=== PATIENT | female | born 1965 | race Caucasian/White ===

== ENCOUNTER 2025-08-03 13:05 | Outpatient (AMB) | payer OTHER, SELFPAY ==
--- NOTE | 2025-08-03 13:06 | MHC.PC.OV ---
Vital Signs 08/03/25 13:09 Height 5 ft 5 in Weight 127 lb BMI 21.1 BP 120/84 Blood Pressure Location Rt brachial Position Sitting Respiration 16 Pulse 64 Pulse Source Pulse Oximeter Temp 96.9 F Temp Source Temporal Artery Scan Pulse Oximetry (%) 96 Oxygen Delivery Method Room Air Intake Visit Reasons: physical - see comments See Supervisor Required: No Accompanied by: Self / Same As Patient Allergies acetaminophen (From Percocet) Adverse Reaction (Intermediate, Verified 08/03/25 13:56) Vomiting oxycodone (From Percocet) Adverse Reaction (Intermediate, Verified 08/03/25 13:56) Vomiting Medication List - Last Reconciled 08/03/25 by Nasra Villeda MD cyanocobalamin (vitamin B-12) mcg IM QMONTH linaclotide (Linzess) 290 mcg PO DAILY lorazepam mg PO BEDTIME PRN prucalopride (Motegrity) 2 mg PO DAILY syringe with needle, safety (BD Integra Syringe) As directed Tobacco use date assessed: 08/03/25 Dental Screening Dental Screen Date: 08/03/25 Did you have a dental visit in the last 12 months?: Yes Did you have a dental problem in the last 6 months where you did not have access to dental care?: No Was dental information given to patient?: Patient has dentist HPI HPI Comments History of Present Illness Details The patient is a 59 year old female presenting to [facility] and for physical. Fatigue: The patient reports feeling lethargic and drained for the past month. She has a history of vitamin B12 deficiency and has been taking monthly B12 shots for a long time. . Chronic Constipation and Irritable Bowel Syndrome: The patient has a long-standing history of GI issues, including a diagnosis of Irritable Bowel Syndrome (IBS) and significant constipation. The constipation is severe, with bowel movements occurring only every other day despite taking both Linzess and Motegrity daily. She notes that the generic version of Motegrity was ineffective compared to the brand name. She reports difficulty seeing her soccer referee. She has to go to [facility] because of her insurance. Her water intake could be better. History of SIBO and Food Sensitivities: The patient was diagnosed with Small Intestinal Bacterial Overgrowth (SIBO) in January after experiencing severe illness, which was treated with a 14-day course of an antibiotic. She believes the SIBO may have resulted from her severe constipation. Since the SIBO diagnosis, she has experienced significant food sensitivities and has been on a gluten-free diet since January due to lab results showing a high intolerance to gluten, which helps with bloating. Despite avoiding gluten, she still experiences reactions, even to gluten-free pasta. Her diet consists mainly of unprocessed foods like eggs, tuna, meat, and vegetables, following a high-protein diet by default. Paresthesia of Right Foot: For about a year, the patient has experienced progressive numbness in her right foot, which started in her 5th toe and has since spread to the adjacent toe. She feels it may now be traveling to the third toe. The symptoms began after a trip involving extensive walking, despite wearing good sneakers, and occurs daily now regardless of activity level. She denies any associated back pain. The numbness is significant enough that she believes she would not feel a screening specialist the affected area. Menopausal Syndrome: The patient believes she is at the end of menopause, reporting that her sleep has improved from what it was previously. She has not tried gabapentin as was previously discussed. She experiences significant vaginal dryness and inquired about topical estradiol suppositories but has not yet seen an PLASTIC PRODUCTION MACHINE SETTER to have it prescribed. Anxiety: The patient continues to see a behavioral therapist for anxiety, now on a quarterly basis for check-ins. She has tried about ten different antidepressants without success and has returned to using lorazepam, though her initial goal was to get off of it. She currently takes two 0.5 mg tablets (1 mg total) at night, which helps with sleep. She has the option to take half a tablet during the day for acute stressful events but rarely does so. She expresses concern about the cognitive side effects of long-term use. Social History: - She follows a gluten-free diet and has been trying to maintain a high-protein diet, consuming eggs, cottage cheese, tuna, meat, and vegetables. - She has a history of consuming dairy products like Pashto yogurt and cheese. - Caffeine: Drinks two, sometimes three, cups of coffee a day. - Water Intake: Reports she could do better than her current intake and was advised to increase to 64 ounces daily. 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 Generalized anxiety disorder Surgical History (Updated 08/03/25 @ 12:43 by Nasra Villeda MD) History of back surgery History of colonoscopy (~08/15/22) Family History (Updated 08/03/25 @ 12:43 by Nasra Villeda MD) Sister Throat cancer Other Congestive heart failure Coronary artery disease Lung cancer Primary hypertension Social History Housing: House Patient Tobacco Use Status: Never used Tobacco e-Cigarette/Vaping Use: Never Used service: No Current occupational status: employed Current occupation: [employer] Questionnaire PHQ-9 Over the last 2 weeks, how often have you been bothered by any of the following problems? 1. Little interest or pleasure in doing things: not at all 2. Feeling down, depressed, or hopeless: not at all 3. Trouble falling or staying asleep, or sleeping too much: not at all 4. Feeling tired or having little energy: several days 5. Poor appetite or overeating: not at all 6. Feeling bad about yourself - or that you are a failure or have let yourself or your family down: not at all 7. Trouble concentrating on things, such as reading the newspaper or watching television: not at all 8. Moving or speaking so slowly that other people could have noticed. Or the opposite - being so fidgety or restless that you have been moving around a lot more than usual: not at all 9. Thoughts that you would be better off or of hurting yourself in some way: not at all Total score: 1 Depression Screening Interpretation: Negative Depression Screening Done: Yes [id number] - PHQ-9 Billing: Yes Source: Developed by Drs. Jonathan Stanton, Lolly Shah, Roger Hernandez and colleagues, with an educational bola from [employer]. Thrive Questionnaire Date Thrive assessed: 08/03/25 I am a: Patient What is your living situation today?: I have a steady place to live Within the past 12 months, did the food you bought not last and you didn't have the money to get more?: Never true Within the past 12 months, did you worry whether your food would run out before you got money to buy more?: Never true Do you have trouble paying for medicines?: No Do you have trouble getting transportation to medical appointments?: No Do you have trouble paying your heating and electricity bill?: No Do you have trouble taking care of your child, family member or friend?: No Do you have trouble with day-to-day activities such as bathing, preparing meals, shopping, managing finances, etc.?: No Are you currently unemployed and looking for a job?: No Are you interested in more education?: No THRIVE Score: 0 AUDIT C Alcohol Use Questionnaire (AUDIT-C) 1. How often do you have a drink containing alcohol?: Monthly or less 2. How many drinks containing alcohol do you have on a typical day when you are drinking?: 1 or 2 3. How often do you have six or more drinks on one occasion?: Never Total Score: 1 DESMOND-7 AMB Questionnaire DESMOND-7 Date DESMOND - 7 assessed: 08/03/25 Feeling nervous, anxious, or on edge: 1 = Several days Not being able to stop or control worryin = Not at all Worrying too much about different things: 0 = Not at all Trouble relaxin = Not at all Being so restless that it is hard to sit still: 0 = Not at all Becoming easily annoyed or irritable: 0 = Not at all Feeling afraid as if something awful might happen: 0 = Not at all Total DESMOND-7 score (0-4 normal; 5-9 mild; 10-14 moderate; 15-21 severe): 1 Source: Developed by Drs. Jonathan Stanton, Lolly Shah, Roger Hernandez and colleagues, with an educational bola from [employer]. Review of Systems Narrative Review of Systems - Constitutional: Reports fatigue and feeling drained for one month. - Gastrointestinal: per hpi - Genitourinary: Reports vaginal dryness. - Musculoskeletal: No back pain reported with foot symptoms. - Neurological: Reports numbness in her right foot, starting in the fifth toe and progressing to the fourth and possibly third toe over the past year. Denies back pain. - Psychiatric: per hpi - Integumentary/Nails: Reports her nails were not growing well, prompting her to start a multivitamin. - Endocrine: Reports being at the end of menopause; her sleep has improved. Physical exam (Primary Care) Vital Signs: Last Vital Signs Temp 96.9 F 08/03/25 13:09 Pulse 64 08/03/25 13:09 Resp 16 08/03/25 13:09 BP 120/84 08/03/25 13:09 Pulse Ox 96 08/03/25 13:09 Oxygen Delivery Method Room Air 08/03/25 13:09 BMI result Body Mass Index 21.1 Tobacco/Smoking Status: Tobacco use Status Tobacco use date assessed 08/03/25 08/03/25 13:14 Patient Tobacco Use Status Never used Tobacco 08/03/25 13:14 e-Cigarette/Vaping Use Never Used 08/03/25 13:14 PHQ-9: PHQ-9 Score PHQ-9: Total score 1 08/03/25 15:41 Depression Screening Interpretation: Negative Thrive Assessment: Date of Thrive Assessment Date Thrive assessed 08/03/25 08/03/25 14:08 Narrative Physical Exam - Eyes: No abnormalities noted on external exam. EOMI, PERRL - Ears: Both ear canals are clear. - Mouth/Throat: Oropharynx is clear. - Cardiovascular: Normal heart sounds with a very soft, murmur. - Pulmonary: Lungs are clear to auscultation bilaterally. - Abdomen: Soft, non-distended, and non-tender to palpation. Bowel sounds are present and normal. - Extremities: 2+ dp pulses bilateral lower extremities - Neurological: Sensory exam of the right foot with monofilament demonstrated decreased sensation to light touch in the fourth toe and absent sensation in the fifth toe, particularly on the lateral aspect. Coding Level of Care Code Est Pt Prev Care 40-64y(84173) Complex visit Add On G2211 Diagnoses Routine medical exam Z00.00 Irritable bowel syndrome with constipation K58.1 Irritable bowel syndrome type: with constipation Anemia due to vitamin B12 deficiency, unspecified B12 deficiency type D51.9 Vitamin B12 deficiency anemia type: unspecified B12 deficiency Additional Codes PHQ-9 - 06633 - PHQ-9 Billing: Yes ([id number]) Assessment & Plan Assessment & Plan (1) Routine medical exam: Code(s): Z00.00 - Encounter for general adult medical examination without abnormal findings Category: Medical (2) IBS (irritable bowel syndrome): Code(s): K58.9 - Irritable bowel syndrome, unspecified Category: Medical Qualifiers: Irritable bowel syndrome type: with constipation Qualified Code(s): K58.1 - Irritable bowel syndrome with constipation (3) B12 deficiency anemia: Code(s): D51.9 - Vitamin B12 deficiency anemia, unspecified Category: Medical Qualifiers: Vitamin B12 deficiency anemia type: unspecified B12 deficiency Qualified Code(s): D51.9 - Vitamin B12 deficiency anemia, unspecified Plan Assessment and Plan 1. Fatigue - The patient's fatigue may be related to anemia, vitamin deficiencies (B12, D, folic acid), or thyroid dysfunction. - Plan is to order labs to check CBC, iron, vitamin B12, vitamin D, folic acid, magnesium, and thyroid function to investigate the cause. 2. Paresthesia of Right Foot - The patient presents with a one-year history of progressive numbness in her right lateral toes. - The differential includes peripheral neuropathy secondary to vitamin deficiency or a localized nerve issue. - The plan is to check vitamin levels (B12, folic acid, magnesium) as a first step. - If labs are normal, an EMG/nerve conduction study will be ordered to further evaluate. 3. Chronic Constipation and GI Distress - The patient has a complex GI history including IBS, chronic constipation refractory to dual therapy (Linzess, Motegrity), history of SIBO, and food sensitivities. - The plan includes ordering a stool test for H. pylori, advising the patient to increase water intake to 64 oz daily, and providing a low-FODMAP diet handout. - A two-week trial of dairy elimination is also suggested to assess for dairy sensitivity. - The patient is advised to follow up with her GI specialist. 4. Menopausal Vaginal Dryness - The patient complains of vaginal dryness. - A referral to an PLASTIC PRODUCTION MACHINE SETTER for exam and possible prescription of topical estradiol was recommended 5. Anxiety - The patient is stable on lorazepam at night, although she expresses a desire to discontinue it. - She is seeing a behavioral therapist. - She will continue her current regimen. - Her DESMOND-7 score is low at 1. 6. Health Maintenance - The patient needs to establish care with an PLASTIC PRODUCTION MACHINE SETTER - She has a mammogram scheduled. Plan - Will order lab work to include CBC, iron studies, vitamin B12, vitamin D, thyroid panel, magnesium, and folic acid to investigate fatigue and paresthesias - Will order a stool test for H. pylori. - If vitamin levels are normal, will refer for an EMG/nerve conduction study to evaluate the right foot numbness. - Advised patient to increase water intake to 64 ounces daily for constipation. - Provided patient with a low-FODMAP diet handout for GI symptoms. - Suggested a two-week trial elimination of dairy to assess for potential sensitivity. - Advised patient to schedule an appointment with an PLASTIC PRODUCTION MACHINE SETTER for vaginal dryness and routine care - Advised patient to schedule a follow-up with her soccer referee. - Follow up in 6 months Patient Instructions - Go to the lab for blood work. We will be checking your blood counts, iron, thyroid, and levels of certain vitamins (B12, D, folic acid, magnesium). - You will need to provide a stool sample to test for a bacteria called H. pylori, which can cause stomach problems. - Please increase your daily water intake to 64 ounces (about four 16-ounce bottles) to help with constipation. - Try removing dairy products (like cheese, yogurt, and milk) from your diet for two weeks to see if it helps your stomach symptoms. - Review the low-FODMAP diet handout for meal ideas that may be easier on your stomach. - Schedule an appointment with an PLASTIC PRODUCTION MACHINE SETTER to discuss vaginal dryness and for your routine exam. Orders: Orders Lipid Panel Today D51.9 - Vitamin B12 deficiency anemia, unspecified, K58.9 - Irritable bowel syndrome, unspecified, R53.83 - Other fatigue, Z00.00 - Encounter for general adult medical examination without abnormal findings Complete Blood Count Auto Diff Today D51.9 - Vitamin B12 deficiency anemia, unspecified, K58.9 - Irritable bowel syndrome, unspecified, R53.83 - Other fatigue, Z00.00 - Encounter for general adult medical examination without abnormal findings IRON PROFILE Today D51.9 - Vitamin B12 deficiency anemia, unspecified, K58.9 - Irritable bowel syndrome, unspecified, R53.83 - Other fatigue, Z00.00 - Encounter for general adult medical examination without abnormal findings H pylori Ag Stool Today D51.9 - Vitamin B12 deficiency anemia, unspecified, K21.9 - Gastro-esophageal reflux disease without esophagitis, K58.9 - Irritable bowel syndrome, unspecified, R53.83 - Other fatigue, Z00.00 - Encounter for general adult medical examination without abnormal findings Vitamin B12 Today D51.9 - Vitamin B12 deficiency anemia, unspecified, K58.9 - Irritable bowel syndrome, unspecified, R53.83 - Other fatigue, Z00.00 - Encounter for general adult medical examination without abnormal findings Vitamin D 25-OH Total Today D51.9 - Vitamin B12 deficiency anemia, unspecified, K58.9 - Irritable bowel syndrome, unspecified, R53.83 - Other fatigue, Z00.00 - Encounter for general adult medical examination without abnormal findings Comprehensive Met. Panel Today D51.9 - Vitamin B12 deficiency anemia, unspecified, K58.9 - Irritable bowel syndrome, unspecified, R53.83 - Other fatigue, Z00.00 - Encounter for general adult medical examination without abnormal findings Ferritin Today D51.9 - Vitamin B12 deficiency anemia, unspecified, K58.9 - Irritable bowel syndrome, unspecified, R53.83 - Other fatigue, Z00.00 - Encounter for general adult medical examination without abnormal findings Folate Today D51.9 - Vitamin B12 deficiency anemia, unspecified, K58.9 - Irritable bowel syndrome, unspecified, R53.83 - Other fatigue, Z00.00 - Encounter for general adult medical examination without abnormal findings TSH reflex Free T4 Today D51.9 - Vitamin B12 deficiency anemia, unspecified, K58.9 - Irritable bowel syndrome, unspecified, R53.83 - Other fatigue, Z00.00 - Encounter for general adult medical examination without abnormal findings Magnesium Today D51.9 - Vitamin B12 deficiency anemia, unspecified, K58.9 - Irritable bowel syndrome, unspecified, R53.83 - Other fatigue, Z00.00 - Encounter for general adult medical examination without abnormal findings Medications: New cyanocobalamin (vitamin B-12) 1,000 mcg IM QMONTH 3 mL 3RF 90 days lorazepam 1 mg PO BEDTIME PRN syringe with needle, safety (BD Integra Syringe) As directed 3 ea 4RF
[2025-08-03 13:09] VITALS: BP 120/84; PULSE 64; RESP 16; TEMP 36.1; O2SAT 96; BMI 21.1
== END 2025-08-03 14:08 | disposition home or self-care (01) ==
LOC: HO.HMCHD 13:06
PROVIDERS: PCP Internal Medicine; Visit Provider Internal Medicine
DX: Z00.00 Encounter for general adult medical examination without abnormal findings (principal); K58.1 Irritable bowel syndrome with constipation; D51.9 Vitamin B12 deficiency anemia, unspecified

== ENCOUNTER → 2025-08-03 13:05 | Outpatient (BNVA) | payer OTHER, SELFPAY | PROVIDERS: PCP Internal Medicine; Visit Provider Internal Medicine | DX: Z00.00 Encounter for general adult medical examination without abnormal findings (principal); Z76.89 Persons encountering health services in other specified circumstances; K58.1 Irritable bowel syndrome with constipation; D51.9 Vitamin B12 deficiency anemia, unspecified | CPT/HCPCS: 96127 ==